=== PATIENT | female | born 1965 | race African-American/Black ===

== ENCOUNTER 2016-08-27 16:27 | Inpatient (IN) | payer MEDICAID, OTHER, SELFPAY ==
[~2016-08-27] VITALS: Ht 163.8 cm; Wt 90.9 kg
[~2016-08-27 16:27] MED LIST: PROZAC; SEROQUEL
[2016-08-27 19:13] LABS: BASOPHILS % (AUTO) 0.3 % (0.0-2.0); EOSINOPHILS % (AUTO) 1.2 % (1.0-6.0); HEMATOCRIT 39.8 % (36-46); LYMPHOCYTES # (AUTO) 1.8 K/uL (1.0-4.8); LYMPHOCYTES % (AUTO) 28.9 % (22.0-44.0); MEAN CORPUSCULAR HEMOGLOBIN 30.6 pg (26.0-34.0); MEAN CORPUSCULAR HGB CONC 32.6 G/dL (31.0-37.0); MEAN CORPUSCULAR VOLUME 94 fL (80-100); MONOCYTES # (AUTO) 0.6 K/uL (0.1-1.0); NEUTROPHILS # (AUTO) 3.8 K/uL (1.8-7.7); NEUTROPHILS % (AUTO) 60.6 % (40.0-70.0); PLATELET COUNT (AUTO) 241 K/uL (150-450); RED BLOOD CELL COUNT(AUTO) 4.24 MIL/uL (4.00-5.20); RED CELL DISTRIBUTION WIDTH 14.5 % (11.5-14.5); WHITE BLOOD COUNT (AUTO) 6.3 K/uL (4.5-11.0)
[2016-08-27 19:22] LABS: ANION GAP 8 mmol/L (8-16); CALCIUM, TOTAL 9.2 mg/dL (8.8-10.5); CARBON DIOXIDE 28 mmol/L (22-29); CHLORIDE 104 mmol/L (98-107); CREATININE 0.68 mg/dL (0.60-1.30); GLOMERULAR FILTR. RATE CALC > 60 mL/min (>60); POTASSIUM 3.7 mmol/L (3.5-5.1); SODIUM SERUM 140 mmol/L (136-145); UREA NITROGEN, BLOOD 7 mg/dL (7-18)
[2016-08-27 19:28] LABS: ALANINE AMINOTRANSFERASE 31 U/L (12-78); ALBUMIN 3.7 g/dL (3.4-5.0); ASPARTATE AMINOTRANSFERASE 21 U/L (15-37); BILIRUBIN,TOTAL 0.4 mg/dL (0.1-1.0); TOTAL PROTEIN, SERUM 7.4 g/dL (6.4-8.2)
[2016-08-27 19:31] LABS: RBC MORPHOLOGY COMMENT NORMAL RBC MORPH
[2016-08-27 20:11] LABS: APPEARANCE,URINE CLEAR (CLEAR); GLUCOSE, URINE (UA) NEGATIVE (NEGATIVE); KETONES,URINE NEGATIVE (NEGATIVE); LEUKOCYTE ESTERASE ,URINE NEGATIVE (NEGATIVE); OCCULT BLOOD,URINE NEGATIVE (NEGATIVE); PH,URINE 6.5 (5.0-8.0); PROTEIN,URINE NEGATIVE (NEGATIVE)
[2016-08-27 20:14] LABS: ADD UA MICROSCOPIC NO
[2016-08-27 20:53] LABS: THYROID STIMULATING HORMONE 1.64 uIU/mL (0.36-3.74)
[2016-08-28 07:47] LABS: CHOL/HDL RATIO 3.3 (3.9-5.7)
[2016-08-28 08:10] VITALS: BP 134/75
[2016-08-28] MEDS: NICOTINE 14 MG/24 HOUR PATCH TD SCH (12:15)
[2016-08-28 16:00] VITALS: BP 136/82
[2016-08-28] MEDS: LORazepam 2 MG TABLET PO PRN (19:15)
[2016-08-28] MEDS: OLANZapine 5 MG TABLET PO SCH (21:46)
[2016-08-29] VITALS (8 sets, daily range): BP systolic 123–146; BP diastolic 67–100
[2016-08-29] MEDS: ACETAMINOPHEN 325 MG TABLET PO PRN ×2 (04:19→12:36)
[2016-08-29] MEDS ORDERED: OMEP20 PO (05:08)
[2016-08-29] MEDS ORDERED: OLAN5TAB2 PO (05:08)
[2016-08-29] MEDS: OLANZapine 5 MG TABLET PO SCH ×2 (09:00→21:10)
[2016-08-29] MEDS: NICOTINE 14 MG/24 HOUR PATCH TD SCH (09:00)
[2016-08-29] MEDS: OMEPRAZOLE 20 MG CAPSULE PO SCH (09:00)
[2016-08-29] MEDS: LORazepam 2 MG TABLET PO PRN (12:11)
[2016-08-30] VITALS (7 sets, daily range): BP systolic 133–142; BP diastolic 68–96
[2016-08-30] MEDS: OMEPRAZOLE 20 MG CAPSULE PO SCH (09:05)
[2016-08-30] MEDS: OLANZapine 5 MG TABLET PO SCH ×2 (09:05→21:05)
[2016-08-30] MEDS: ACETAMINOPHEN 325 MG TABLET PO PRN (09:06)
[2016-08-30] MEDS: NICOTINE 14 MG/24 HOUR PATCH TD SCH (09:06)
[2016-08-30] MEDS: LORazepam 2 MG TABLET PO PRN ×2 (09:55→21:33)
[2016-08-30] MEDS: HALOPERIDOL 5 MG TABLET PO PRN ×2 (09:55→21:33)
[2016-08-31 05:47] VITALS: BP 116/77
[2016-08-31] MEDS: NICOTINE 14 MG/24 HOUR PATCH TD SCH (08:40)
[2016-08-31] MEDS: OLANZapine 5 MG TABLET PO SCH ×2 (08:40→21:38)
[2016-08-31] MEDS: OMEPRAZOLE 20 MG CAPSULE PO SCH (08:40)
[2016-08-31 08:59] VITALS: BP 118/75
[2016-08-31 10:26] VITALS: BP 118/77
[2016-08-31] MEDS ORDERED: PETROLATUM,WHITE 71 GM JELLY TP PRN (12:45)
[2016-08-31 16:20] VITALS: BP 135/89
[2016-08-31] MEDS: ACETAMINOPHEN 325 MG TABLET PO PRN (16:20)
[2016-08-31 18:29] VITALS: BP 135/89
[2016-09-01 00:16] VITALS: BP 124/70
[2016-09-01 00:28] VITALS: BP 124/70
[2016-09-01 08:03] VITALS: BP 125/84
[2016-09-01] MEDS: OMEPRAZOLE 20 MG CAPSULE PO SCH (08:51)
[2016-09-01] MEDS: OLANZapine 5 MG TABLET PO SCH (08:51)
[2016-09-01] MEDS: NICOTINE 14 MG/24 HOUR PATCH TD SCH (08:51)
[2016-09-01] MEDS: LORazepam 2 MG TABLET PO PRN (14:43)
[2016-09-01 16:20] VITALS: BP 122/71
[2016-09-01] MEDS: OLANZapine 7.5 MG TABLET PO SCH (20:18)
[2016-09-02 00:13] VITALS: BP 128/61
[2016-09-02] MEDS: NICOTINE 14 MG/24 HOUR PATCH TD SCH (08:54)
[2016-09-02] MEDS: OLANZapine 7.5 MG TABLET PO SCH ×2 (08:54→21:00)
[2016-09-02] MEDS: OMEPRAZOLE 20 MG CAPSULE PO SCH (08:54)
[2016-09-02] MEDS: CITALOPRAM HYDROBROMIDE 20 MG TABLET PO SCH (08:54)
[2016-09-02 09:27] VITALS: BP 126/62
[2016-09-02] MEDS: ACETAMINOPHEN 325 MG TABLET PO PRN (09:55)
[2016-09-02 16:46] VITALS: BP 127/83
[2016-09-02 19:30] VITALS: BP 137/70
[2016-09-02] MEDS: IBUPROFEN 600 MG TABLET PO PRN (19:34)
[2016-09-02] MEDS: ZOLPIDEM TARTRATE 10 MG TABLET PO PRN (21:00)
[2016-09-03 06:20] VITALS: BP 140/81
[2016-09-03] MEDS: NICOTINE 14 MG/24 HOUR PATCH TD SCH (08:47)
[2016-09-03] MEDS: CITALOPRAM HYDROBROMIDE 20 MG TABLET PO SCH (08:48)
[2016-09-03] MEDS: OMEPRAZOLE 20 MG CAPSULE PO SCH (08:48)
[2016-09-03] MEDS: OLANZapine 7.5 MG TABLET PO SCH ×2 (08:48→20:50)
[2016-09-03 09:59] VITALS: BP 127/71
[2016-09-03] MEDS: IBUPROFEN 600 MG TABLET PO PRN (13:46)
[2016-09-03] MEDS ORDERED: GuaiFENesin/D-METHORPHAN/PHENYLEPH 5 ML LIQUID ORAL.SYG PO PRN (14:45)
[2016-09-03] MEDS: LORazepam 2 MG TABLET PO PRN (16:24)
[2016-09-03 16:37] VITALS: BP 122/77
[2016-09-03] MEDS: ZOLPIDEM TARTRATE 10 MG TABLET PO PRN (22:37)
[2016-09-04 01:45] VITALS: BP 127/78
[2016-09-04 05:25] VITALS: BP 138/93
[2016-09-04] MEDS: IBUPROFEN 600 MG TABLET PO PRN ×2 (05:40→14:45)
[2016-09-04] MEDS: BENZOCAINE/MENTHOL LOZENGE PO PRN ×2 (06:53→19:17)
[2016-09-04 08:13] VITALS: BP 127/76
[2016-09-04] MEDS: CITALOPRAM HYDROBROMIDE 20 MG TABLET PO SCH (08:52)
[2016-09-04] MEDS: OMEPRAZOLE 20 MG CAPSULE PO SCH (08:52)
[2016-09-04] MEDS: NICOTINE 14 MG/24 HOUR PATCH TD SCH (08:52)
[2016-09-04] MEDS: OLANZapine 7.5 MG TABLET PO SCH ×2 (08:52→20:19)
[2016-09-04] MEDS: LORazepam 2 MG TABLET PO PRN (09:09)
[2016-09-04 14:45] VITALS: BP 125/73
[2016-09-04 16:18] VITALS: BP 129/77
[2016-09-05 06:28] VITALS: BP 138/76
[2016-09-05] MEDS: LORazepam 2 MG TABLET PO PRN (08:42)
[2016-09-05] MEDS: OMEPRAZOLE 20 MG CAPSULE PO SCH (08:42)
[2016-09-05] MEDS: CITALOPRAM HYDROBROMIDE 20 MG TABLET PO SCH (08:42)
[2016-09-05] MEDS: OLANZapine 7.5 MG TABLET PO SCH ×2 (08:42→21:37)
[2016-09-05] MEDS: NICOTINE 14 MG/24 HOUR PATCH TD SCH (08:42)
[2016-09-05] MEDS: IBUPROFEN 600 MG TABLET PO PRN ×2 (08:43→14:55)
[2016-09-05 09:50] VITALS: BP 136/78
[2016-09-05 14:44] VITALS: BP 135/75
[2016-09-05 16:17] VITALS: BP 123/78
[2016-09-05] MEDS: ZOLPIDEM TARTRATE 10 MG TABLET PO PRN (21:37)
[2016-09-06] MEDS: IBUPROFEN 600 MG TABLET PO PRN ×2 (06:09→14:00)
[2016-09-06 06:17] VITALS: BP_SYST 133; BP_SYST 140; BP_DIAS 73; BP_DIAS 79
[2016-09-06 08:37] VITALS: BP 124/76
[2016-09-06] MEDS: NICOTINE 14 MG/24 HOUR PATCH TD SCH (08:56)
[2016-09-06] MEDS: OLANZapine 7.5 MG TABLET PO SCH ×2 (08:57→20:36)
[2016-09-06] MEDS: OMEPRAZOLE 20 MG CAPSULE PO SCH (08:57)
[2016-09-06] MEDS: CITALOPRAM HYDROBROMIDE 20 MG TABLET PO SCH (08:57)
[2016-09-06] MEDS: LORazepam 2 MG TABLET PO PRN ×2 (08:58→19:08)
[2016-09-06 13:59] VITALS: BP 137/77
[2016-09-06 15:01] VITALS: BP 130/75
[2016-09-06 16:44] VITALS: BP 129/72
[2016-09-06] MEDS: BENZOCAINE/MENTHOL LOZENGE PO PRN (17:39)
[2016-09-07 06:40] VITALS: BP 128/66
[2016-09-07] MEDS: NICOTINE 14 MG/24 HOUR PATCH TD SCH (08:15)
[2016-09-07] MEDS: OLANZapine 7.5 MG TABLET PO SCH ×2 (08:15→20:22)
[2016-09-07] MEDS: CITALOPRAM HYDROBROMIDE 20 MG TABLET PO SCH (08:15)
[2016-09-07] MEDS: OMEPRAZOLE 20 MG CAPSULE PO SCH (08:15)
[2016-09-07] MEDS: IBUPROFEN 600 MG TABLET PO PRN ×2 (08:16→16:39)
[2016-09-07] MEDS: LORazepam 2 MG TABLET PO PRN (08:16)
[2016-09-07 08:30] VITALS: BP 133/79
[2016-09-07 09:16] VITALS: BP 130/75
[2016-09-07] MEDS: ACETAMINOPHEN 325 MG TABLET PO PRN (12:52)
[2016-09-07 12:53] VITALS: BP 125/82
[2016-09-07 13:52] VITALS: BP 123/80
[2016-09-07 16:24] VITALS: BP 122/72
[2016-09-07] MEDS: HALOPERIDOL 5 MG TABLET PO PRN (16:39)
[2016-09-07] MEDS: ZOLPIDEM TARTRATE 10 MG TABLET PO PRN (20:22)
[2016-09-08 00:13] VITALS: BP 138/83
[2016-09-08 08:44] VITALS: BP 97/55
[2016-09-08] MEDS: OLANZapine 7.5 MG TABLET PO SCH ×2 (09:00→20:34)
[2016-09-08] MEDS: NICOTINE 14 MG/24 HOUR PATCH TD SCH (09:00)
[2016-09-08] MEDS: CITALOPRAM HYDROBROMIDE 20 MG TABLET PO SCH (09:00)
[2016-09-08] MEDS: OMEPRAZOLE 20 MG CAPSULE PO SCH (09:00)
[2016-09-08] MEDS: LORazepam 2 MG TABLET PO PRN ×2 (09:22→16:20)
[2016-09-08] MEDS: IBUPROFEN 600 MG TABLET PO PRN (09:22)
[2016-09-08 09:23] VITALS: BP 147/93
[2016-09-08] MEDS: HALOPERIDOL 5 MG TABLET PO PRN ×2 (09:29→16:20)
[2016-09-08 10:22] VITALS: BP 130/75
[2016-09-08 16:32] VITALS: BP 137/81
[2016-09-08] MEDS: ZOLPIDEM TARTRATE 10 MG TABLET PO PRN (21:19)
[2016-09-09] MEDS: IBUPROFEN 600 MG TABLET PO PRN ×2 (00:24→08:09)
[2016-09-09 06:38] VITALS: BP 122/74
[2016-09-09 08:06] VITALS: BP 129/85
[2016-09-09] MEDS: CITALOPRAM HYDROBROMIDE 20 MG TABLET PO SCH (08:08)
[2016-09-09] MEDS: OLANZapine 7.5 MG TABLET PO SCH ×2 (08:08→20:38)
[2016-09-09] MEDS: LORazepam 2 MG TABLET PO PRN ×2 (08:09→16:12)
[2016-09-09] MEDS: OMEPRAZOLE 20 MG CAPSULE PO SCH (08:09)
[2016-09-09] MEDS: NICOTINE 14 MG/24 HOUR PATCH TD SCH (08:09)
[2016-09-09] MEDS: HALOPERIDOL 5 MG TABLET PO PRN (11:55)
[2016-09-09 16:00] VITALS: BP 131/78
[2016-09-09] MEDS: DICLOFENAC SODIUM 1% 100 GM GEL [2GM] TP SCH (16:12)
[2016-09-10] MEDS: ZOLPIDEM TARTRATE 10 MG TABLET PO PRN (02:06)
[2016-09-10 07:18] VITALS: BP 135/74
[2016-09-10] MEDS: OLANZapine 7.5 MG TABLET PO SCH ×2 (08:11→20:22)
[2016-09-10] MEDS: HALOPERIDOL 5 MG TABLET PO PRN ×3 (08:11→18:01)
[2016-09-10] MEDS: CITALOPRAM HYDROBROMIDE 20 MG TABLET PO SCH (08:11)
[2016-09-10] MEDS: LORazepam 2 MG TABLET PO PRN ×2 (08:11→16:11)
[2016-09-10] MEDS: OMEPRAZOLE 20 MG CAPSULE PO SCH (08:11)
[2016-09-10] MEDS: IBUPROFEN 600 MG TABLET PO PRN (08:11)
[2016-09-10] MEDS: NICOTINE 14 MG/24 HOUR PATCH TD SCH (08:14)
[2016-09-10 08:15] VITALS: BP 133/80
[2016-09-10] MEDS ORDERED: MAGNESIUM HYDROXIDE SUSPENSION 30 ML UDCUP PO PRN (08:45)
[2016-09-10] MEDS: DICLOFENAC SODIUM 1% 100 GM GEL [2GM] TP SCH ×3 (09:03→16:11)
[2016-09-10] MEDS: DOCUSATE SODIUM 250 MG CAPSULE PO SCH ×2 (09:03→16:11)
[2016-09-10 16:17] VITALS: BP 134/89
[2016-09-11 00:12] VITALS: BP 134/81
[2016-09-11 04:00] VITALS: BP 140/78
[2016-09-11] MEDS: LORazepam 2 MG TABLET PO PRN ×3 (04:17→16:06)
[2016-09-11] MEDS: IBUPROFEN 600 MG TABLET PO PRN ×2 (04:17→13:17)
[2016-09-11 08:47] VITALS: BP 131/85
[2016-09-11] MEDS: CITALOPRAM HYDROBROMIDE 20 MG TABLET PO SCH (08:54)
[2016-09-11] MEDS: NICOTINE 14 MG/24 HOUR PATCH TD SCH (08:54)
[2016-09-11] MEDS: OMEPRAZOLE 20 MG CAPSULE PO SCH (08:54)
[2016-09-11] MEDS: OLANZapine 7.5 MG TABLET PO SCH ×2 (08:54→20:28)
[2016-09-11] MEDS: DOCUSATE SODIUM 250 MG CAPSULE PO SCH ×2 (08:54→16:06)
[2016-09-11] MEDS: DICLOFENAC SODIUM 1% 100 GM GEL [2GM] TP SCH ×3 (08:54→16:35)
[2016-09-11] MEDS: HALOPERIDOL 5 MG TABLET PO PRN (10:10)
[2016-09-11] MEDS: BENZOCAINE/MENTHOL LOZENGE PO PRN (13:17)
[2016-09-11 16:19] VITALS: BP 142/82
[2016-09-11 20:31] VITALS: BP 130/80
[2016-09-11] MEDS: ACETAMINOPHEN 325 MG TABLET PO PRN (20:31)
[2016-09-11] MEDS: ZOLPIDEM TARTRATE 10 MG TABLET PO PRN (21:11)
[2016-09-12 00:30] VITALS: BP 165/68
[2016-09-12 01:00] VITALS: BP 145/84
[2016-09-12] MEDS: IBUPROFEN 600 MG TABLET PO PRN (01:38)
[2016-09-12 05:25] VITALS: BP 138/85
[2016-09-12] MEDS ORDERED: DOCU250C91 PO (05:50)
[2016-09-12] MEDS ORDERED: OLAN7.5T2 PO (05:58)
[2016-09-12] MEDS ORDERED: CITA20TA9 PO (05:58)
[2016-09-12] MEDS ORDERED: DICL2100G TP (05:58)
== END 2016-09-12 07:20 | disposition home or self-care (01) | DRG 750 ==
LOC: EMS 16:28 → AHU 08-28 07:37 → B2S 08-28 12:05
DX: F25.1 Schizoaffective disorder, depressive type (principal); F22 Delusional disorders; F15.10 Other stimulant abuse, uncomplicated; Z71.51 Drug abuse counseling and surveillance of drug abuser; F12.90 Cannabis use, unspecified, uncomplicated; K59.00 Constipation, unspecified
CPT/HCPCS: 70450; 84443; 86171; 86592; 87389; 93005; 99285; G0480

== ENCOUNTER 2016-08-29 04:47 | Emergency (ER) | payer MEDICAID, OTHER ==
[~2016-08-29] VITALS: Ht 170.2 cm; Wt 87.0 kg
[2016-08-29] MEDS ORDERED: OLAN5TAB2 PO (05:08)
[2016-08-29] MEDS ORDERED: OMEP20 PO (05:08)
[2016-08-29 05:39] LABS: BASOPHILS # (AUTO) 0.03 K/uL (0.00-0.20); BASOPHILS % (AUTO) 0.5 % (0.0-2.0); EOSINOPHILS # (AUTO) 0.04 K/uL (0.00-0.70); EOSINOPHILS % (AUTO) 0.65 % (1.0-6.0); HEMATOCRIT 39.8 % (36-46); HEMOGLOBIN 13.2 g/dL (12.0-16.0); LYMPHOCYTES # (AUTO) 1.5 K/uL (1.0-4.8); LYMPHOCYTES % (AUTO) 23.3 % (22.0-44.0); MEAN CORPUSCULAR HGB CONC 33.1 G/dL (31.0-37.0); MEAN CORPUSCULAR VOLUME 93 fL (80-100); MONOCYTES # (AUTO) 0.6 K/uL (0.1-1.0); MONOCYTES % (AUTO) 8.9 % (2.0-9.0); NEUTROPHILS # (AUTO) 4.3 K/uL (1.8-7.7); NEUTROPHILS % (AUTO) 66.6 % (40.0-70.0); PLATELET COUNT (AUTO) 247 K/uL (150-450); RED BLOOD CELL COUNT(AUTO) 4.26 MIL/uL (4.00-5.20); RED CELL DISTRIBUTION WIDTH 14.9 % (11.5-14.5); WHITE BLOOD COUNT (AUTO) 6.5 K/uL (4.5-11.0)
[2016-08-29 05:51] LABS: ANION GAP 6 mmol/L (8-16); CALCIUM, TOTAL 9.2 mg/dL (8.8-10.5); CARBON DIOXIDE 29 mmol/L (22-29); CHLORIDE 105 mmol/L (98-107); CREATININE 0.89 mg/dL (0.60-1.30); GLOMERULAR FILTR. RATE CALC > 60 mL/min (>60); SODIUM SERUM 140 mmol/L (136-145); UREA NITROGEN, BLOOD 11 mg/dL (7-18)
[2016-08-29 05:57] LABS: ACETAMINOPHEN 5 mcg/mL (10-30); ALANINE AMINOTRANSFERASE 27 U/L (12-78); ALBUMIN 3.6 g/dL (3.4-5.0); ASPARTATE AMINOTRANSFERASE 14 U/L (15-37); BILIRUBIN,TOTAL 0.4 mg/dL (0.1-1.0); SALICYLATE < 2.8 mg/dL (2.8-20.0); TOTAL PROTEIN, SERUM 7.2 g/dL (6.4-8.2)
[2016-08-29 05:59] LABS: AMMONIA < 10 umol/L (11-32); B-TYPE NATRIURETIC PEPTIDE < 5 pg/mL (0-100); TROPONIN I < 0.02 ng/mL (0.00-0.05)
[2016-08-29 06:05] LABS: APPEARANCE,URINE CLEAR (CLEAR); GLUCOSE, URINE (UA) NEGATIVE (NEGATIVE); KETONES,URINE NEGATIVE (NEGATIVE); LEUKOCYTE ESTERASE ,URINE NEGATIVE (NEGATIVE); OCCULT BLOOD,URINE NEGATIVE (NEGATIVE); PROTEIN,URINE NEGATIVE (NEGATIVE)
[2016-08-29 06:06] LABS: ADD UA MICROSCOPIC NO
[2016-08-29 10:00] VITALS: BP 135/89
== END 2016-08-29 11:10 | disposition home or self-care (01) ==
LOC: EMS 04:49
DX: F29 Unspecified psychosis not due to a substance or known physiological condition (principal); F31.9 Bipolar disorder, unspecified; F17.210 Nicotine dependence, cigarettes, uncomplicated; F15.90 Other stimulant use, unspecified, uncomplicated
CPT/HCPCS: 36415; 70450; 80053; 80307; 81003; 82140; 83880; 84484; 85025; 93005; 99285; G0480; G0481

== ENCOUNTER 2016-09-12 02:06 | Emergency (ER) | payer OTHER ==
[~2016-09-12] VITALS: Ht 165.1 cm; Wt 91.0 kg
[~2016-09-12 02:06] MED LIST changes: +OLAN5TAB2 PO; +OMEP20 PO; -PROZAC; -SEROQUEL
[2016-09-12 03:11] LABS: ANION GAP 11 mmol/L (8-16); CALCIUM, TOTAL 8.9 mg/dL (8.8-10.5); CARBON DIOXIDE 27 mmol/L (22-29); CHLORIDE 101 mmol/L (98-107); CREATININE 0.82 mg/dL (0.60-1.30); GLOMERULAR FILTR. RATE CALC > 60 mL/min (>60); POTASSIUM 3.7 mmol/L (3.5-5.1); SODIUM SERUM 139 mmol/L (136-145); UREA NITROGEN, BLOOD 10 mg/dL (7-18)
[2016-09-12 03:13] LABS: BASOPHILS # (AUTO) 0.01 K/uL (0.00-0.20); BASOPHILS % (AUTO) 0.1 % (0.0-2.0); EOSINOPHILS # (AUTO) 0.01 K/uL (0.00-0.70); EOSINOPHILS % (AUTO) 0.07 % (1.0-6.0); HEMATOCRIT 37.4 % (36-46); HEMOGLOBIN 12.3 g/dL (12.0-16.0); LYMPHOCYTES # (AUTO) 1.2 K/uL (1.0-4.8); LYMPHOCYTES % (AUTO) 8.1 % (22.0-44.0); MEAN CORPUSCULAR HEMOGLOBIN 30.4 pg (26.0-34.0); MEAN CORPUSCULAR HGB CONC 32.8 G/dL (31.0-37.0); MEAN CORPUSCULAR VOLUME 93 fL (80-100); MONOCYTES % (AUTO) 6.8 % (2.0-9.0); NEUTROPHILS # (AUTO) 12.6 K/uL (1.8-7.7); PLATELET COUNT (AUTO) 222 K/uL (150-450); RED BLOOD CELL COUNT(AUTO) 4.04 MIL/uL (4.00-5.20); RED CELL DISTRIBUTION WIDTH 14.2 % (11.5-14.5); WHITE BLOOD COUNT (AUTO) 14.9 K/uL (4.5-11.0)
[2016-09-12 03:17] LABS: ALANINE AMINOTRANSFERASE 59 U/L (12-78); ALBUMIN 3.6 g/dL (3.4-5.0); ASPARTATE AMINOTRANSFERASE 31 U/L (15-37); BILIRUBIN,TOTAL 0.3 mg/dL (0.1-1.0); TOTAL PROTEIN, SERUM 7.4 g/dL (6.4-8.2)
[2016-09-12 03:19] LABS: APPEARANCE,URINE CLEAR (CLEAR); GLUCOSE, URINE (UA) NEGATIVE (NEGATIVE); KETONES,URINE NEGATIVE (NEGATIVE); LEUKOCYTE ESTERASE ,URINE NEGATIVE (NEGATIVE); OCCULT BLOOD,URINE NEGATIVE (NEGATIVE); PROTEIN,URINE NEGATIVE (NEGATIVE)
[2016-09-12 03:20] LABS: LACTIC ACID 1.4 mmol/L (0.4-2.0)
[2016-09-12 03:22] LABS: ADD UA MICROSCOPIC NO
[2016-09-12 03:55] VITALS: BP 109/55
[2016-09-12] MEDS ORDERED: DOCU250C91 PO (05:50)
[2016-09-12] MEDS ORDERED: CITA20TA9 PO (05:58)
[2016-09-12] MEDS ORDERED: DICL2100G TP (05:58)
[2016-09-12] MEDS ORDERED: OLAN7.5T2 PO (05:58)
== END 2016-09-12 05:22 | disposition home or self-care (01) ==
LOC: EMS 02:07
DX: J09.X2 Influenza due to identified novel influenza A virus with other respiratory manifestations (principal); F17.210 Nicotine dependence, cigarettes, uncomplicated
CPT/HCPCS: 83605; 99284

== ENCOUNTER 2019-08-16 10:07 | Inpatient (IN) | payer MEDICAID, OTHER ==
[~2019-08-16] VITALS: Ht 160 cm; Wt 69.3 kg
[~2019-08-16 10:07] MED LIST changes: +CITA-144 PO; +DICL2100G TP; +DOCU-342 PO; -OLAN5TAB2 PO; +OLAN7.5T2 PO
[2019-08-16 13:45] LABS: BASOPHILS % (AUTO) 0.7 % (0.0-2.0); EOSINOPHILS % (AUTO) 0.9 % (1.0-6.0); HEMATOCRIT 40.6 % (36-46); HEMOGLOBIN 13.5 g/dL (12.0-16.0); LYMPHOCYTES # (AUTO) 1.7 K/uL (1.0-4.8); MEAN CORPUSCULAR HEMOGLOBIN 31.7 pg (26.0-34.0); MEAN CORPUSCULAR HGB CONC 33.3 G/dL (31.0-37.0); MEAN CORPUSCULAR VOLUME 95 fL (80-100); MONOCYTES # (AUTO) 0.4 K/uL (0.1-1.0); MONOCYTES % (AUTO) 6.2 % (2.0-9.0); NEUTROPHILS # (AUTO) 4.2 K/uL (1.8-7.7); NEUTROPHILS % (AUTO) 65.2 % (40.0-70.0); PLATELET COUNT (AUTO) 244 K/uL (150-450); RED BLOOD CELL COUNT(AUTO) 4.26 MIL/uL (4.00-5.20); RED CELL DISTRIBUTION WIDTH 13.3 % (11.5-14.5)
[2019-08-16 14:04] LABS: AMPHET/METH SCREEN,URINE NEGATIVE (NEGATIVE); BARBITURATE SCREEN, URINE NEGATIVE (NEGATIVE); BENZODIAZEPINES SCREEN,URINE NEGATIVE (NEGATIVE); CANNABINOID SCREEN,URINE POSITIVE (NEGATIVE); COCAINE SCREEN,URINE NEGATIVE (NEGATIVE); METHADONE SCREEN, URINE NEGATIVE (NEGATIVE); OPIATE SCREEN,URINE NEGATIVE (NEGATIVE)
[2019-08-16 14:05] LABS: PHENCYCLIDINE SCREEN,URINE NEGATIVE (NEGATIVE)
[2019-08-16 14:11] LABS: ANION GAP 11 mmol/L (8-16); CALCIUM, TOTAL 9.7 mg/dL (8.8-10.5); CARBON DIOXIDE 25 mmol/L (22-29); CHLORIDE 105 mmol/L (98-107); CREATININE 0.44 mg/dL (0.60-1.30); GLOMERULAR FILTR. RATE CALC > 60 mL/min (>60); GLUCOSE,RANDOM 87 mg/dL (70-110); POTASSIUM 3.8 mmol/L (3.5-5.1); SODIUM SERUM 141 mmol/L (136-145); UREA NITROGEN, BLOOD 13 mg/dL (7-18)
[2019-08-16 14:17] LABS: ALANINE AMINOTRANSFERASE 25 U/L (12-78); ALKALINE PHOSPHATASE 89 U/L (46-116); ASPARTATE AMINOTRANSFERASE 18 U/L (15-37); BILIRUBIN,TOTAL 0.3 mg/dL (0.1-1.0); TOTAL PROTEIN, SERUM 7.7 g/dL (6.4-8.2)
[2019-08-16] MEDS ORDERED: OLANZapine 5 MG TABLET PO ONE (15:00)
[2019-08-16] MEDS ORDERED: NICOTINE 7 MG/24 HOUR PATCH TD ONE (15:00)
[2019-08-16] MEDS ORDERED: ZOLPIDEM TARTRATE 10 MG TABLET PO PRN (16:30)
[2019-08-16 18:43] VITALS: BP 137/79
[2019-08-16] MEDS ORDERED: PNEUMOCOCCAL VACCINE POLYVALENT 0.5 ML VIAL [PPSV23] IM ONE (19:45)
[2019-08-16] MEDS: OLANZapine 5 MG TABLET PO SCH (20:02)
[2019-08-16] MEDS: MAG HYDROX/AL HYDROX/SIMETH ES 30 ML SUSPENSION UDCUP PO PRN (21:26)
[2019-08-17 06:32] VITALS: BP 127/94
[2019-08-17] MEDS: OLANZapine 5 MG TABLET PO SCH (08:42)
[2019-08-17 08:45] LABS: CHOL/HDL RATIO 3.3 (3.9-5.7)
[2019-08-17] MEDS ORDERED: CITALOPRAM HYDROBROMIDE 20 MG TABLET PO SCH ×2 (09:00→11:00)
[2019-08-17 09:18] VITALS: BP 124/85
[2019-08-17] MEDS ORDERED: OLANZapine 7.5 MG TABLET PO SCH (11:00)
[2019-08-17 16:16] VITALS: BP 123/60
[2019-08-17] MEDS: NICOTINE 21 MG/24 HOUR PATCH TD PRN (17:29)
[2019-08-17] MEDS: HALOPERIDOL 5 MG TABLET PO PRN (21:49)
[2019-08-17] MEDS: LORazepam 2 MG TABLET PO PRN (21:49)
[2019-08-18 00:11] VITALS: BP 136/89
[2019-08-18] MEDS: MAG HYDROX/AL HYDROX/SIMETH ES 30 ML SUSPENSION UDCUP PO PRN ×2 (00:14→17:06)
[2019-08-18 08:32] VITALS: BP 133/72
[2019-08-18] MEDS: CITALOPRAM HYDROBROMIDE 20 MG TABLET PO SCH (09:14)
[2019-08-18] MEDS: OLANZapine 7.5 MG TABLET PO SCH ×2 (09:14→21:03)
[2019-08-18 16:10] VITALS: BP 133/80
[2019-08-18] MEDS: LORazepam 2 MG TABLET PO PRN (18:24)
[2019-08-18] MEDS: HALOPERIDOL 5 MG TABLET PO PRN (21:03)
[2019-08-19 05:02] VITALS: BP 128/78
[2019-08-19] MEDS ORDERED: NICOTINE 14 MG/24 HOUR PATCH TD PRN (08:00)
[2019-08-19] MEDS ORDERED: GuaiFENesin/D-METHORPHAN [SUGAR-FREE] 200-20MG/10 ML SYRUP UDCUP PO PRN (08:00)
[2019-08-19] MEDS ORDERED: PETROLATUM,WHITE 28 GM JELLY TP PRN (08:00)
[2019-08-19] MEDS ORDERED: LOPERAMIDE HCL 2 MG CAPSULE PO PRN (08:00)
[2019-08-19] MEDS ORDERED: ALBUTEROL SULFATE HFA 90 MCG/PUFF 8 GM INHALER IH PRN (08:00)
[2019-08-19] MEDS ORDERED: ACETAMINOPHEN 325 MG TABLET PO PRN (08:00)
[2019-08-19] MEDS ORDERED: DOCUSATE SODIUM 100 MG CAPSULE PO PRN (08:00)
[2019-08-19] MEDS ORDERED: MAG HYDROX/AL HYDROX/SIMETH ES 30 ML SUSPENSION UDCUP PO PRN (08:00)
[2019-08-19] MEDS ORDERED: CloNIDine HCL 0.1 MG TABLET PO PRN (08:00)
[2019-08-19] MEDS ORDERED: ONDANSETRON HCL 4 MG TABLET PO PRN (08:00)
[2019-08-19] MEDS ORDERED: MAGNESIUM HYDROXIDE SUSPENSION 30 ML UDCUP PO PRN (08:00)
[2019-08-19] MEDS ORDERED: IBUPROFEN 400 MG TABLET PO PRN (08:00)
[2019-08-19] MEDS: OLANZapine 7.5 MG TABLET PO SCH ×2 (08:19→20:45)
[2019-08-19] MEDS: CITALOPRAM HYDROBROMIDE 20 MG TABLET PO SCH (08:19)
[2019-08-19] MEDS: DOCUSATE SODIUM 250 MG CAPSULE PO SCH ×2 (08:23→16:34)
[2019-08-19] MEDS: OMEPRAZOLE 20 MG CAPSULE PO SCH (08:23)
[2019-08-19 08:56] VITALS: BP 126/72
[2019-08-19 16:22] VITALS: BP 137/79
[2019-08-19] MEDS: MAG HYDROX/AL HYDROX/SIMETH ES 30 ML SUSPENSION UDCUP PO PRN (21:27)
[2019-08-20 05:22] VITALS: BP 140/90
[2019-08-20] MEDS: LORazepam 2 MG TABLET PO PRN (05:30)
[2019-08-20] MEDS: OLANZapine 7.5 MG TABLET PO SCH (08:13)
[2019-08-20] MEDS: DOCUSATE SODIUM 250 MG CAPSULE PO SCH (08:13)
[2019-08-20] MEDS: OMEPRAZOLE 20 MG CAPSULE PO SCH (08:13)
[2019-08-20] MEDS: CITALOPRAM HYDROBROMIDE 20 MG TABLET PO SCH (08:13)
[2019-08-20 09:16] VITALS: BP 139/99
[2019-08-20] MEDS: NICOTINE 21 MG/24 HOUR PATCH TD PRN (12:47)
== END 2019-08-20 13:30 | disposition home or self-care (01) | DRG 750 ==
LOC: EMS 10:07 → B2S 16:23 → UNDOADMIN 16:51 → B2S 16:51
PROVIDERS: ADMIT Psychiatry & Neurology Child & Adolescent Psychiatry; ATTEND Psychiatry & Neurology Child & Adolescent Psychiatry
DX: F25.0 Schizoaffective disorder, bipolar type (principal); R45.850 Homicidal ideations; E78.5 Hyperlipidemia, unspecified; F17.200 Nicotine dependence, unspecified, uncomplicated; I10 Essential (primary) hypertension; K21.9 Gastro-esophageal reflux disease without esophagitis; K59.00 Constipation, unspecified; Z59.0 Homelessness; Z90.710 Acquired absence of both cervix and uterus; Z91.14 Patient's other noncompliance with medication regimen; Z91.5 Personal history of self-harm
CPT/HCPCS: 90732; G0480